=== PATIENT | male | born 1975 | race Caucasian/White ===

== ENCOUNTER 2021-07-31 00:15 | Day surgery (SDC) | payer BC, SELFPAY ==
[2021-07-19 14:48] VITALS: BMI 36.9
--- NOTE | 2021-07-30 19:10 | PM.HPGS ---
History of Present Illness History of Present Illness Consent: Risks, benefits, and alternatives have been discussed and questions answered. Patient agrees to proceed with procedure. Chief complaint: Neoplasm Screening Narrative: Dar De La Fuente is a 45 year old male referred for colon cancer screening Review of Systems Review of Systems: All systems reviewed & are unremarkable except as noted in HPI and below PMFSH Past Medical History Medical History Medial epicondylitis of left elbow Family History Family History Grandparent Diabetes mellitus Carcinoma of colon Father Hypertension Mother Family history of malignant neoplasm of breast in first degree relative Sibling Family history of malignant neoplasm of breast in first degree relative Social History Social History Smoking status: Never smoker Smokeless tobacco user: chewing tobacco Alcohol intake: never Substance use: never Substance use type: does not use Living arrangements: with family Spiritual care concerns: No Meds Home Medications and Allergies Home Medications Medication Instructions Recorded Confirmed Type cyclobenzaprine 10 mg tablet 10 mg PO QHS PRN #10 tablet 05/24/21 07/31/21 Rx naproxen 500 mg tablet 500 mg PO BID #60 tablet 06/16/21 07/31/21 Rx Allergies Allergy/AdvReac Type Severity Reaction Status Date / Time No Known Allergies Allergy Verified 07/31/21 06:56 Exam Resp: Auscultation: clear to auscultation bilaterally Cardio: Rate: regular rate Rhythm: regular rhythm GI: GI Palp: Yes Soft to palpation and No Tenderness to palpation present (GI) Assessment and Plan Assessment and plan (1) Colon cancer screening: Code(s): Z12.11 - Encounter for screening for malignant neoplasm of colon Status: Acute Assessment and Plan: Colonoscopy with possible biopsy or polypectomy or cautery or injection of substances.
[2021-07-31 06:47] VITALS: BP 162/90; PULSE 82; RESP 18; TEMP 36.3; O2SAT 99; BMI 36.2
[2021-07-31] MEDS: LACTATED RINGERS 1,000 ML 150 ML IV CONT (07:06)
--- NOTE | 2021-07-31 07:24 | P.PNAN_ITS ---
Anes - Initial Pre Proc Eval Procedure: Operation Date: 07/31/21 08:00 Proposed Procedures p Screening Colonoscopy - Ziyad Zaman MD Date/Time: 07/31/21 07:24 Surgeon: Ziyad Zaman MD Pre Op Diagnosis: Neoplasm Screening Patient Data Age: 45 Gender: M Height: 1.85 m Weight: 124.6 kg Last Vital Signs Temp 36.3 C L 07/31/21 06:47 Pulse 82 07/31/21 06:47 Resp 18 07/31/21 06:47 BP 162/90 H 07/31/21 06:47 Pulse Ox 99 07/31/21 06:47 Allergies Allergy/AdvReac Type Severity Reaction Status Date / Time No Known Allergies Allergy Verified 07/31/21 06:56 Home Medications Medication Instructions Recorded Confirmed Type cyclobenzaprine 10 mg tablet 10 mg PO QHS PRN #10 tablet 05/24/21 07/31/21 Rx naproxen 500 mg tablet 500 mg PO BID #60 tablet 06/16/21 07/31/21 Rx Patient hx anesthesia problems: none Family hx anesthesia problems: none Results Review: All pre-operative results and documents have been reviewed as part of the pre-operative evaluation. [facility] Past Medical History Medical History Medial epicondylitis of left elbow Family History Family History Grandparent Diabetes mellitus Carcinoma of colon Father Hypertension Mother Family history of malignant neoplasm of breast in first degree relative Sibling Family history of malignant neoplasm of breast in first degree relative Social History Social History Smoking status: Never smoker Smokeless tobacco user: chewing tobacco Alcohol intake: never Substance use: never Substance use type: does not use Living arrangements: with family Spiritual care concerns: No Anes - Eval Final PreProcedure Day of Procedure 07/31/21 07:24 Patient weight: obese Heart: regular rate and rhythm Lungs: clear to auscultation Airway: Mallampati scale class II Neurological: alert and oriented Last oral intake: >/= 8 hours ASA classification: III Emergent: no Anesthetic plan: proceed Anesthesia type and monitoring: general GIVS and standard monitoring Results Review: All pre-operative results and documents have been reviewed as part of the pre-operative evaluation. Informed Consent: The patient's anesthetic plan and its attendant risks and benefits were discussed with the patient/family/POA. Questions were solicited and answers provided to the satisfaction of the patient/family/POA.
[2021-07-31 08:10] VITALS: BP 118/84; PULSE 70; RESP 16; O2SAT 96
[2021-07-31 08:20] VITALS: BP 118/79; PULSE 78; RESP 18; O2SAT 99
[2021-07-31 08:30] VITALS: BP 158/85; PULSE 62; RESP 20; O2SAT 99
== END 2021-07-31 08:45 | disposition home or self-care (01) ==
PROVIDERS: PCP Family Medicine; Visit Provider Internal Medicine Gastroenterology
PROC: 0DJD8ZZ Inspection of Lower Intestinal Tract, Via Natural or Artificial Opening Endoscopic (ICD-10-PCS; CPT 45378; principal; 2021-07-31 08:00)
DX: Z12.11 Encounter for screening for malignant neoplasm of colon (principal); E66.9 Obesity, unspecified; Z68.36 Body mass index [BMI] 36.0-36.9, adult; F17.290 Nicotine dependence, other tobacco product, uncomplicated
CPT/HCPCS: 45378; J2704; J7120